=== PATIENT | female | born 1985 | race Caucasian/White ===

== ENCOUNTER 2017-04-28 16:46 | Emergency (ER) | payer SELFPAY ==
[~2017-04-28] VITALS: Ht 162.6 cm; Wt 44.0 kg
[2017-04-28 17:49] LABS: BASO % 1 % (0-3); EOS % 1 % (0-3); HEMOGLOBIN 14.7 g/dL (12.0-15.5); LYMPH # 2.6 x10^3/uL (1.0-4.8); LYMPH % 41 % (24-48); MEAN CORPUSCULAR HEMOGLOBIN 30 pg (25-35); MEAN CORPUSCULAR HGB CONC 34 g/dL (31-37); MEAN CORPUSCULAR VOLUME 90 fL (79-100); MONO % 5 % (0-9); NEUT % 52 % (31-73); PLATELET COUNT 221 x10^3/uL (140-400); RED BLOOD COUNT 4.87 x10^6/uL (3.50-5.40); WHITE BLOOD COUNT 6.2 x10^3/uL (4.0-11.0)
[2017-04-28 17:55] LABS: BILIRUBIN,URINE NEGATIVE (NEG); GLUCOSE,URINE NEGATIVE (NEG); NITRITE,URINE NEGATIVE (NEG); PH,URINE 6.5; PROTEIN,URINE NEGATIVE (NEG-TRACE); UROBILINOGEN,URINE 0.2 mg/dL (0.2 mg/dL)
--- NOTE | 2017-04-28 17:56 | PHYS DOC ---
Past Medical History Past Medical History: No Pertinent History Past Surgical History: Lumbar Laminectomy Additional Information: PPD Alcohol Use: None Drug Use: None Adult General Chief Complaint Chief Complaint: ALTERED MENTAL STATUS HPI HPI Patient is a 31 year old female who presents to the emergency department for evaluation of altered mental status. Patient was brought to the emergency department by her . The patient reportedly was "acting strange" at approximately 11 AM as was reported to the by his daughter through a text message. The daughter states that she told her mother to "code bad." The patient went to bed at that time and did not wake up until the patient's came home and tried to wake her up at approximately 4:30 PM. The states that the patient started suddenly when he had to wake her by yelling her name and shaking her shoulder. The patient appeared very confused and the patient's stated that she seemed to be in a state, "like you have after a seizure." The patient attempted to fall back asleep at that time which prompted the to bring the patient to the emergency department for evaluation. The patient has history of lower lumbar back pain and has had 2 previous spinal surgeries. Patient has chronic pain which she reports taking ibuprofen and Tylenol to help. Patient also states that she takes muscle relaxants as needed. Patient states of the name of this prescription as Valium. Patient states that she has not taken any medications today. Patient denies any recent fevers but states that she has been having trouble with a head cold over the past 7 days but has been having improvement. The patient's also notes that the patient was exerting herself outside yesterday in the heat working on a sanding project. Patient has no history of seizures. The patient did not display any unilateral weakness but was having difficulty with speech as she has had increased stuttering and slurring. Patient denies any pain. Patient states she has not taken any narcotic medication in the past several days. Review of Systems Review of Systems Constitutional: Denies fever or chills [] Eyes: Denies change in visual acuity, redness, or eye pain [] HENT: Denies nasal congestion or sore throat [] Respiratory: Denies cough or shortness of breath [] Cardiovascular: Denies chest pain or edema [] GI: Denies abdominal pain, nausea, vomiting, bloody stools or diarrhea [] : Denies dysuria or hematuria [] Musculoskeletal: Chronic back pain [] Integument: Denies rash or skin lesions [] Neurologic: Confusion, generalized weakness [] Current Medications Current Medications Current Medications Medications (Trade) Dose Ordered Sig/Cali Start Time Stop Time Status Last Admin Dose Admin Sodium Chloride 1,000 ml @ 1,000 mls/hr 1X ONCE 04/28/17 18:30 04/28/17 19:29 DC 04/28/17 18:41 1,000 MLS/HR Allergies Allergies Allergies Coded Allergies Type Severity Reaction Last Updated Verified silicone Allergy Unknown 04/28/17 Yes Physical Exam Physical Exam Constitutional: Lethargic, mild slurring his speech, afebrile. [] HENT: Normocephalic, atraumatic, bilateral external ears normal, oropharynx moist, no oral exudates, nose normal. [] Eyes: PERRLA, EOMI, conjunctiva normal, no discharge. [] Neck: Normal range of motion, no tenderness, supple, no stridor. [] Cardiovascular: Tachycardia, regular rhythm, no murmur [] Lungs & Thorax: Bilateral breath sounds clear to auscultation [] Abdomen: Bowel sounds normal, soft, no tenderness, no masses, no pulsatile masses. [] Skin: Warm, dry, no erythema, no rash. [] Back: No tenderness, no CVA tenderness. [] Extremities: No tenderness, no cyanosis, no clubbing, ROM intact, no edema. 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 [] Current Patient Data Vital Signs Vital Signs Date Time Temp Pulse Resp B/P (MAP) Pulse Ox O2 Delivery O2 Flow Rate FiO2 04/28/17 18:57 98 19 120/71 (87) 100 Room Air 04/28/17 17:05 98.2 98.2 Lab Values Laboratory Tests Test 04/28/17 16:55 04/28/17 16:58 04/28/17 17:30 04/28/17 17:45 POC Urine HCG, Qualitative Hcg negative (Negative) White Blood Count 6.2 x10^3/uL (4.0-11.0) Red Blood Count 4.87 x10^6/uL (3.50-5.40) Hemoglobin 14.7 g/dL (12.0-15.5) Hematocrit 44.0 % (36.0-47.0) Mean Corpuscular Volume 90 fL (79-100) Mean Corpuscular Hemoglobin 30 pg (25-35) Mean Corpuscular Hemoglobin Concent 34 g/dL (31-37) Red Cell Distribution Width 13.0 % (11.5-14.5) Platelet Count 221 x10^3/uL (140-400) Neutrophils (%) (Auto) 52 % (31-73) Lymphocytes (%) (Auto) 41 % (24-48) Monocytes (%) (Auto) 5 % (0-9) Eosinophils (%) (Auto) 1 % (0-3) Basophils (%) (Auto) 1 % (0-3) Neutrophils # (Auto) 3.2 x10^3uL (1.8-7.7) Lymphocytes # (Auto) 2.6 x10^3/uL (1.0-4.8) Monocytes # (Auto) 0.3 x10^3/uL (0.0-1.1) Eosinophils # (Auto) 0.0 x10^3/uL (0.0-0.7) Basophils # (Auto) 0.0 x10^3/uL (0.0-0.2) Sodium Level 142 mmol/L (136-145) Potassium Level 4.5 mmol/L (3.5-5.1) Chloride Level 105 mmol/L (98-107) Carbon Dioxide Level 24 mmol/L (21-32) Anion Gap 13 (6-14) Blood Urea Nitrogen 14 mg/dL (7-20) Creatinine 0.9 mg/dL (0.6-1.0) Estimated GFR (Cockcroft-Gault) 73.5 BUN/Creatinine Ratio 16 (6-20) Glucose Level 97 mg/dL (70-99) Lactic Acid Level 2.9 mmol/L (0.4-2.0) H Calcium Level 8.3 mg/dL (8.5-10.1) L Magnesium Level 2.1 mg/dL (1.8-2.4) Total Bilirubin 0.4 mg/dL (0.2-1.0) Aspartate Amino Transferase (AST) 19 U/L (15-37) Alanine Aminotransferase (ALT) 20 U/L (14-59) Alkaline Phosphatase 58 U/L (46-116) Creatine Kinase 723 U/L (26-192) H Total Protein 6.5 g/dL (6.4-8.2) Albumin 3.8 g/dL (3.4-5.0) Albumin/Globulin Ratio 1.4 (1.0-1.7) Salicylates Level 5.3 mg/dL (2.8-20.0) Salicylate Last Dose Date Salicylate Last Dose Time Acetaminophen Level 2.05 mcg/ml (10-30) L Acetaminophen Last Dose Date Acetaminophen Last Dose Time Glucose (Fingerstick) 94 mg/dL (70-99) Urine Collection Type Unknown Urine Color Yellow Urine Clarity Clear Urine pH 6.5 Urine Specific [place] 1.015 Urine Protein Negative mg/dL (NEG-TRACE) Urine Glucose (UA) Negative mg/dL (NEG) Urine Ketones (Stick) Negative mg/dL (NEG) Urine Blood Negative (NEG) Urine Nitrite Negative (NEG) Urine Bilirubin Negative (NEG) Urine Urobilinogen Dipstick 0.2 mg/dL (0.2 mg/dL) Urine Leukocyte Esterase Negative (NEG) Urine RBC 0 /HPF (0-2) Urine WBC 1-4 /HPF (0-4) Urine Squamous Epithelial Cells Few /LPF Urine Bacteria Few /HPF (0-FEW) Urine Mucus Slight /LPF Urine Opiates Screen Neg (NEG) Urine Methadone Screen Neg (NEG) Urine Barbiturates Neg (NEG) Urine Phencyclidine Screen Neg (NEG) Urine Amphetamine/Methamphetamine Neg (NEG) Urine Benzodiazepines Screen Neg (NEG) Urine Cocaine Screen Neg (NEG) Urine Cannabinoids Screen Neg (NEG) Urine Ethyl Alcohol Neg (NEG) Laboratory Tests 04/28/17 16:58 Laboratory Tests 04/28/17 16:58 EKG EKG Interpreted by me: Heart rate 94, sinus rhythm, normal intervals, normal axis, no acute ST/T-wave abnormalities present [] Radiology/Procedures Radiology/Procedures [facility] [address] [place], [place] [id number] IMAGING REPORT Signed PATIENT: RODO VELOZ ACCOUNT: [id number] : 1985 LOCATION: ER AGE: 31 SEX: F EXAM STATUS: REG ER ORD. PHYSICIAN: JEMAL COLON MD REASON: altered mental status PROCEDURE: CT HEAD WO CONTRAST CT HEAD WO CONTRAST History: Altered mental status today Comparison: None. Technique: Noncontrast [address] images were acquired from the skull base to the vertex. Exposure: One or more of the following individualized dose reduction techniques were utilized for this examination: 1. Automated exposure control 2. Adjustment of the mA and/or kV according to patient size 3. Use of iterative reconstruction technique. Findings: No acute extra-axial or parenchymal hemorrhage is identified. There is no significant intra-axial mass effect, midline shift, or extra-axial fluid collection. The cole-white differentiation of the major vascular territories is preserved. The ventricles, sulci, and cisterns are within normal limits in size and configuration. The mastoid air cells and the visualized paranasal sinuses are aerated. No acute calvarial abnormality is identified. Impression: 1. No acute intracranial abnormality is identified. Electronically signed by: Holli Graham MD (04/28/2017 6:13 PM) [facility] DICTATED and SIGNED BY: HOLLI GRAHAM MD DATE: 04/28/171810 CC: JEMAL COLON MD; NO PCP ~ [] Course & Med Decision Making Course & Med Decision Making Pertinent Labs and Imaging studies reviewed. (See chart for details) Patient was treated with IV fluids in the emergency department. Patient had mildly elevated CK levels and an elevated lactic acid level with no other significant findings. I believe that this findings are likely due to dehydration. The patient was reevaluated and showed improvement in her mental status and patient was able to ambulate independently in the emergency department. The patient wishes to go home at this time. Cause of patient's symptoms are unclear though they may have been due to mild dehydration versus possible seizure type episode. I recommended that the patient establish follow- up appointment with Dr. Gould of neurology in one to 2 weeks for reevaluation. I advised return emergency department for any worsening symptoms. Patient voiced understanding and in agreement with treatment plan. Dragon Disclaimer Dragon Disclaimer This electronic medical record was generated, in whole or in part, using a voice recognition dictation system. Departure Departure Impression: Primary Impression: Dehydration Additional Impression: Fatigue Disposition: 01 HOME, SELF-CARE Condition: IMPROVED Referrals: NO PCP (PCP) Patient Instructions: Dehydration, Adult, Fatigue Additional Instructions: Your workup today showed evidence of dehydration which was treated. There remains suspicion that your episode today may have been related to a possible seizure. Follow-up with Dr. Gould of neurology in the next 1-2 weeks for reevaluation. Return to the emergency department for any worsening symptoms. Problem Qualifiers Additional Impression: Fatigue Fatigue type: unspecified Qualified Codes: R53.83 - Other fatigue JEMAL COLON MD Apr 28, 2017 17:56
[2017-04-28 17:59] LABS: CALCIUM 8.3 mg/dL (8.5-10.1); CREATININE 0.9 mg/dL (0.6-1.0); GFR 73.5; POTASSIUM 4.5 mmol/L (3.5-5.1)
[2017-04-28 18:04] LABS: ALBUMIN 3.8 g/dL (3.4-5.0); ALBUMIN/GLOBULIN RATIO 1.4 (1.0-1.7); MAGNESIUM 2.1 mg/dL (1.8-2.4); TOTAL BILIRUBIN 0.4 mg/dL (0.2-1.0); TOTAL PROTEIN 6.5 g/dL (6.4-8.2)
[2017-04-28 18:07] LABS: BACTERIA,URINE FEW /HPF (0-FEW); RBC,URINE 0 /HPF (0-2); SQUAMOUS EPITHELIAL CELL,UR FEW /LPF
[2017-04-28 18:12] LABS: BARBITURATES NEG (NEG); BENZODIAZEPINES NEG (NEG); CANNABINOIDS NEG (NEG); COCAINE NEG (NEG); METHADONE NEG (NEG); OPIATES NEG (NEG); PHENCYCLIDINE NEG (NEG)
--- NOTE | 2017-04-28 18:17 | RAD ---
CT HEAD WO CONTRAST History: Altered mental status today Comparison: None. Technique: Noncontrast [address] images were acquired from the skull base to the vertex. Exposure: One or more of the following individualized dose reduction techniques were utilized for this examination: 1. Automated exposure control 2. Adjustment of the mA and/or kV according to patient size 3. Use of iterative reconstruction technique. Findings: No acute extra-axial or parenchymal hemorrhage is identified. There is no significant intra-axial mass effect, midline shift, or extra-axial fluid collection. The cole-white differentiation of the major vascular territories is preserved. The ventricles, sulci, and cisterns are within normal limits in size and configuration. The mastoid air cells and the visualized paranasal sinuses are aerated. No acute calvarial abnormality is identified. Impression: 1. No acute intracranial abnormality is identified. Electronically signed by: Giancarlo Torres MD (04/28/2017 6:13 PM) [facility]
--- NOTE | 2017-04-28 18:22 | EKG ---
[facility] [address] [place] [id number] Test Date: 2017-04-28 Test Time: 17:47:45 Pat Name: RODO VELOZ Department: Room: Gender: F Traffic I Manager: : 1985 Requested By: JEMAL COLON Order Number: [id number] Reading MD: Yolette Jay Measurements Intervals [place] Rate: 94 P: 71 IN: 144 QRS: 101 QRSD: 88 T: 47 QT: 354 QTc: 443 Interpretive Statements SINUS RHYTHM RIGHTWARD AXIS OTHERWISE NORMAL ECG Electronically Signed On 04-29-2017 20:42:09 CDT by Yolette Jay
[2017-04-28] MEDS ORDERED: IV NORMAL SALINE 1000ML BAG 1,000 ML IV ONE (18:30)
[2017-04-28 18:57] VITALS: BP 120/71
--- NOTE | 2017-04-29 08:03 | RAD ---
Portable chest, 04/28/2017: History: Tachycardia The heart size and pulmonary vascularity are normal. The lungs are clear. There is no evidence of pleural fluid. IMPRESSION: No acute cardiopulmonary abnormality is detected.
== END 2017-04-28 20:27 | disposition home or self-care (01) ==
LOC: ER 16:46
DX: E86.0 Dehydration (principal); R53.83 Other fatigue; R41.82 Altered mental status, unspecified; G89.29 Other chronic pain; R74.0 Nonspecific elevation of levels of transaminase and lactic acid dehydrogenase [LDH]; F17.200 Nicotine dependence, unspecified, uncomplicated; Z88.8 Allergy status to other drugs, medicaments and biological substances
CPT/HCPCS: 36415; 70450; 71010; 80053; 80307; 80329; 81001; 81025; 82550; 82962; 83605; 83735; 85025; 87040; 93005; 96360; 96361; 99285; J7030; G0479

== ENCOUNTER 2021-11-25 18:21 | Emergency (ER) | payer MEDICARE | END 2021-11-25 19:30 | disposition left against medical advice (07) | LOC: ER 18:21 | DX: M54.9 Dorsalgia, unspecified (principal); Z53.21 Procedure and treatment not carried out due to patient leaving prior to being seen by health care provider ==